=== PATIENT | male | born 1995 | race Two or more races ===

== ENCOUNTER 2018-02-26 02:35 | Observation (INO) | payer SELFPAY ==
[2018-02-26] MEDS ORDERED: NS 0.9% 1000 ML* 1,000 ML IV ONE (03:09)
[2018-02-26] MEDS ORDERED: Metoclopramide IV* 5 MG/ML 2 ML VIAL IV SLOW PU ONE (03:10)
[2018-02-26] MEDS ORDERED: Morphine INJ* 4 MG/ML 1 ML SYRINGE (NEW SYRINGE VERSION) IV ONE (03:10)
--- NOTE | 2018-02-26 03:14 | ED ---
Abdominal Pain/Male - HPI Summary HPI Summary: This patient is a 22 year old M presenting to [facility] with a chief complaint of mid abdominal pain since 21:00 on 02/25/18. The patient rates the pain 7/10 in severity. Patient reports vomiting 3 times, diarrhea, and nausea. Patient denies fever and sore throat. - History of Current Complaint Chief Complaint: EDAbdPain Stated Complaint: ABD PAIN/VOMITING Time Seen by Provider: 02/26/18 03:05 Hx Obtained From: Patient Onset/Duration: Sudden Onset, Lasting Hours - 21:00 on 02/25/18 Timing: Constant Severity Initially: Moderate Severity Currently: Moderate Pain Intensity: 7 Pain Scale Used: 0-10 Numeric Location: Diffuse - Mid-abdomen Associated Signs And Symptoms: Positive: Nausea, Vomiting - 3 times, Diarrhea. Negative: Fever, Other - Denies sore throat. - Allergies/Home Medications Allergies/Adverse Reactions: Allergies Allergy/AdvReac Type Severity Reaction Status Date / Time No Known Allergies Allergy Verified 02/26/18 02:40 PMH/Surg Hx/FS Hx/Imm Hx Endocrine/Hematology History: Denies: Hx Anticoagulant Therapy Cardiovascular History: Denies: Hx Hypertension Infectious Disease History: No Infectious Disease History: Denies: Traveled Outside the US in Last 30 Days - Family History Known Family History: Negative: Renal Disease - Social History Occupation: Student Lives: With Family Alcohol Use: None Substance Use Type: Reports: None Smoking Status (MU): Never Smoked Tobacco Review of Systems Negative: Fever Negative: Sore Throat Positive: Abdominal Pain - mid-abdominal pain, Vomiting - 3 times, Diarrhea, Nausea All Other Systems Reviewed And Are Negative: Yes Physical Exam - Summary Physical Exam Summary: VITAL SIGNS: Reviewed. GENERAL: Patient is a well-developed and nourished MALE who is lying comfortable in the stretcher. Patient is not in any acute respiratory distress. HEAD AND FACE: No signs of trauma. No ecchymosis, hematomas or skull depressions. No sinus tenderness. EYES: PERRLA, EOMI x 2, No injected conjunctiva, no nystagmus. EARS: Hearing grossly intact. Ear canals and tympanic membranes are within normal limits. MOUTH: Oropharynx within normal limits. NECK: Supple, trachea is midline, no adenopathy, no JVD, no carotid bruit, no c- spine tenderness, neck with full ROM. CHEST: Symmetric, no tenderness at palpation LUNGS: Clear to auscultation bilaterally. No wheezing or crackles. CVS: Regular rate and rhythm, S1 and S2 present, no murmurs or gallops appreciated. ABDOMEN: RLQ tenderness on deep palpation. No signs of distention. No rebound no guarding, and no masses palpated. Bowel sounds are normal. EXTREMITIES: FROM in all major joints, no edema, no cyanosis or clubbing. NEURO: Alert and oriented x 3. No acute neurological deficits. Speech is normal and follows commands. SKIN: Dry and warm Triage Information Reviewed: Yes Vital Signs On Initial Exam: Initial Vitals Temp Pulse Resp BP Pulse Ox 98.9 F 78 20 132/74 97 02/26/18 02:36 02/26/18 02:36 02/26/18 02:36 02/26/18 02:36 02/26/18 02:36 Vital Signs Reviewed: Yes Diagnostics - Vital Signs Vital Signs Temp Pulse Resp BP Pulse Ox 02/26/18 02:36 98.9 F 78 20 132/74 97 - Laboratory Result Diagrams: 02/26/18 03:20 02/26/18 03:20 Lab Statement: Any lab studies that have been ordered have been reviewed, and results considered in the medical decision making process. - CT Abdomen/Pelvis CT CT Interpretation Completed By: Radiologist - 05:26. The appendix is mildly enlarged measuring approximately 1 CM with surrounding inflammatory changes and wall thickening, findings are concerning for acute appendicitis. ED Physician has reviewed this imaging report. Abdominal Pain Fem Course/Dx - Course Course Of Treatment: This patient is a 22 year old M presenting to [facility] with a chief complaint of mid abdominal pain since 21:00 on 02/25/18. The patient rates the pain 7/10 in severity. Patient reports vomiting 3 times, diarrhea, and nausea. Patient denies fever and sore throat. Abdomen/Pelvis CT showed The appendix is mildly enlarged measuring approximately 1 CM with surrounding inflammatory changes and wall thickening, findings are concerning for acute appendicitis. Pt is dx with appendicitis. I spoke with Dr. Emerson, surgery, who will admit him. - Diagnoses Provider Diagnoses: Appendicitis - Provider Notifications Discussed Care Of Patient With: Christian Emerson - Surgery Time Discussed With Above Provider: 05:30 Instructed by Provider To: Admit As Inpatient Discharge - Sign-Out/Discharge Documenting (check all that apply): Patient Departure - Admit - Discharge Plan Condition: Stable Disposition: ADMITTED TO [facility] Referrals: No Primary Care Phys,NOPCP [Primary Care Provider] - - Attestation Statements Document Initiated by Scribe: Yes Documenting Scribe: Carlo Mai Provider For Whom Scribe is Documenting (Include Credential): Karla Ruiz MD Scribe Attestation: ICarlo, scribed for Karla Ruiz MD on 02/26/18 at 0539.
[2018-02-26 03:31] LABS: ABS Basophils 0.1 10^3/ul (0-0.2); ABS Eosinophils 0.1 10^3/ul (0-0.6); ABS Lymphocytes 1.5 10^3/ul (1.0-4.8); ABS Monocytes 0.7 10^3/ul (0-0.8); ABS Neutrophils 13.3 10^3/ul (1.5-7.7); ABS Nucleated RBC 0 10^3/ul; Eosinophil % 0.6 % (0-6); Hematocrit 46 % (42-52); Hemoglobin 15.8 g/dl (14.0-18.0); Lymphocyte % 9.6 % (25-47); Mean Corpuscular HGB Conc 34 g/dl (31-36); Mean Corpuscular Hemoglobin 31 pg (27-31); Mean Corpuscular Volume 90 fL (80-94); Mean Platelet Volume 8.6 um3 (7.4-10.4); Nucleated Red Blood Cells % 0; Platelet Count 188 10^3/ul (150-450); Red Blood Count 5.14 10^6/ul (4.00-5.40); Red Cell Distribution Width 13 % (10.5-15); White Blood Count 15.7 10^3/ul (3.5-10.8)
[2018-02-26 03:52] LABS: EGFR Non-African American 100.1 (>60)
[2018-02-26] MEDS ORDERED: Iohexol 300* (CONTRAST) 10 ML SDV IV ONE (04:29)
--- NOTE | 2018-02-26 05:26 | RAD ---
EXAM: CT Abdomen and Pelvis With Intravenous Contrast CLINICAL HISTORY: 22 years old, male; Pain; Abdominal pain; Epigastric; Additional info: Abd pain TECHNIQUE: Axial computed tomography images of the abdomen and pelvis with intravenous contrast. All CT scans at this facility use at least one of these dose optimization techniques: automated exposure control; mA and/or kV adjustment per patient size (includes targeted exams where dose is matched to clinical indication); or iterative reconstruction. Coronal and sagittal reformatted images were created and reviewed. CONTRAST: 100 mL of OMNIPAQUE 300 administered intravenously. COMPARISON: No relevant prior studies available. FINDINGS: Lung bases: Unremarkable. No mass. No consolidation. ABDOMEN: Liver: Unremarkable. No mass. Gallbladder and bile ducts: Unremarkable. No calcified stones. No ductal dilation. Pancreas: Unremarkable. No mass. No ductal dilation. Spleen: Unremarkable. No splenomegaly. Adrenals: Unremarkable. No mass. Kidneys and ureters: Unremarkable. No solid mass. No hydronephrosis. Stomach and bowel: Unremarkable. No obstruction. No mucosal thickening. PELVIS: Appendix: The appendix is mildly enlarged measuring approximately 1 CM with surrounding inflammatory changes and wall thickening, findings are concerning for acute appendicitis. Bladder: Unremarkable. No mass. Reproductive: Unremarkable as visualized. ABDOMEN and PELVIS: Intraperitoneal space: Unremarkable. No free air. No significant fluid collection. Bones/joints: No acute fracture. No dislocation. Soft tissues: Unremarkable. Vasculature: Unremarkable. No abdominal aortic aneurysm. Lymph nodes: Unremarkable. No enlarged lymph nodes. IMPRESSION: The appendix is mildly enlarged measuring approximately 1 CM with surrounding inflammatory changes and wall thickening, findings are concerning for acute appendicitis. To contact [facility] with a general question: [facility] - [phone] For direct physician to physician contact: Physician Hotline - [phone] [facility] ([facility] Facility ID #[id number])
[2018-02-26] MEDS ORDERED: Piperacillin/Tazobac ADVAN(*) 3.375 GM in NS 0.9% 100 ML* 100 ML IVPB ONE (05:28)
[2018-02-26] MEDS ORDERED: Morphine INJ* 4 MG/ML 1 ML SYRINGE (NEW SYRINGE VERSION) IV PRN (07:48)
[2018-02-26] MEDS ORDERED: Acetaminophen TAB* 325 MG PO PRN (07:48)
[2018-02-26] MEDS ORDERED: Ondansetron INJ* 2 MG/ML VIAL IV PRN (07:51)
[2018-02-26] MEDS ORDERED: NS 0.9% 1000 ML* 1,000 ML IV SCH (08:00)
[2018-02-26 08:09] LABS: Urine Appearance Clear; Urine Blood Negative (Negative); Urine Color Straw; Urine Ketones Negative (Negative); Urine Protein Negative (Negative); Urine Specific Gravity 1.046 (1.010-1.030); Urine Urobilinogen Negative (Negative)
[2018-02-26] MEDS ORDERED: Famotidine IV* 10 MG/ML 2 ML (20 mg) IV SLOW PU ONE (08:31)
--- NOTE | 2018-02-26 10:03 | HP ---
CC: Dr. Montenegro at [facility]; [facility] * PRIORITY PREOPERATIVE ADMISSION HISTORY AND PHYSICAL: DATE OF ADMISSION: 02/26/18 This patient was seen in the emergency department of [facility] on 02/26/18. ATTENDING SURGEON: Yon Montenegro MD * (dictated by Amelia Grant NP) CHIEF COMPLAINT: Abdominal pain. HISTORY OF PRESENT ILLNESS: The patient is a 22-year-old male who is a student at [employer]. He had the sudden onset of mid abdominal pain last evening around 10 p.m. and rated it at 9. He tried Tums and Pepto-Bismol without effect. He had 3 episodes of vomiting after the onset of the abdominal pain and 1 episode of loose stool. He did not eat any unusual foods and has had no sick contacts. He came to the emergency room with worsening abdominal pain. He denies any dysuria. He has had no previous abdominal surgeries and his last meal was at 8 p.m. last evening. White blood cell count on admission was elevated at 15.7 with a left shift. CAT scan of the abdomen and pelvis was concerning for acute appendicitis with a mildly enlarged appendix with surrounding inflammatory changes. PAST MEDICAL HISTORY: Generally healthy. No acute or chronic conditions. PAST SURGICAL HISTORY: [place] teeth extraction. MEDICATIONS: 1. Multivitamin. 2. Fish oil supplement daily. ALLERGIES: No known drug allergies. FAMILY HISTORY: No known gastrointestinal history. Parents and older sister are alive and well. 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 He is a nonsmoker. He denies the use of alcohol or other substances. REVIEW OF SYSTEMS: Constitutional: No fevers or chills, no excessive fatigue or weight loss. Respiratory: No dyspnea on exertion. Good exercise tolerance. No chronic cough. Cardiovascular: No chest pain or palpitations. Gastrointestinal: As described in history of present illness. Genitourinary: No dysuria. Musculoskeletal: No joint or back pain. Neurologic: No blurred vision. No headache. No numbness. General: No bleeding tendencies. No history of blood transfusions. PHYSICAL EXAMINATION GENERAL SURVEY: The patient is a 22-year-old male, well developed, well nourished, in no acute distress. VITAL SIGNS: Height 6 feet, weight 170 pounds, body mass index 23. Blood pressure 132/74, pulse 78 and regular, respiratory rate 20, temperature 98.9 tympanic, O2 saturation 97% on room air. HEENT: Benign. NECK: Supple. No cervical lymphadenopathy. LUNGS: Breath sounds bilaterally clear and equal. HEART: Regular rate and rhythm. No murmurs or rubs appreciated. ABDOMEN: Active bowel sounds. Flat, soft. No surgical scars. No obvious masses or organomegaly. No guarding. No rigidity. Negative to percussion. Mild right lower tenderness on deep palpation. MUSCULOSKELETAL: Full range of motion. GENITALIA AND RECTAL: Exams deferred. NEUROLOGIC: Alert and oriented x3. SKIN: Warm, dry, intact. IMPRESSION: Acute appendicitis. PLAN: Per Dr. Montenegro to the OR today for laparoscopic appendectomy. The risks and benefits and usual hospitalization and postoperative recovery were discussed with the patient. I also spoke with his parents by phone and they are on the way from [place]. Dr. Montenergo will obtain surgical consent. TIME SPENT: Sixty minutes with greater than 50% in [id number] history taking and coordination of care. IRMA GRANT NP [id number]/[facility] #: [id number] TIMO
[2018-02-26] MEDS ORDERED: Bupivacaine 0.25% EPI 200,000* 30 ML SDV ONE (13:14)
[2018-02-26] MEDS ORDERED: ZOSYN 3.375 GM x ONE DOSE over 30 miuntes IVPB ×2 (14:00)
[2018-02-26] MEDS ORDERED: fentaNYL* 50 MCG/ML 2 ML VIAL (100 MCG VIAL) ONE (14:24)
[2018-02-26] MEDS ORDERED: Midazolam* 1 MG/ML 2 ML VIAL (2 MG) ONE (14:24)
[2018-02-26] MEDS ORDERED: Propofol* 10 MG/ML 20 ML BTL IV PUSH ONE ×2 (14:26→14:35)
[2018-02-26] MEDS ORDERED: Rocuronium* 10 MG/ML VIAL ONE (14:28)
[2018-02-26] MEDS ORDERED: Ketorolac INJ* 30 MG/ML 1 ML VIAL ONE (15:05)
[2018-02-26] MEDS ORDERED: Neostigmine Methylsulfate* 1 MG/ML 10 ML VIAL (1 mg/ml) ONE (15:05)
[2018-02-26] MEDS ORDERED: Glycopyrrolate IV* 0.2 MG/ML 1 ML VIAL ONE (15:05)
[2018-02-26] MEDS ORDERED: Naloxone* 0.4 MG/ML 1 ML VIAL IV PRN (15:08)
[2018-02-26] MEDS ORDERED: fentaNYL* 50 MCG/ML 2 ML VIAL (100 MCG VIAL) IV PRN (15:08)
--- NOTE | 2018-02-26 16:03 | BRIEFOPN ---
Brief Operative Note - Surgery Procedures: OPERATIVE REPORT PRE-OP: Acute appendicitis POST-OP:Same PROCEDURE:Laparoscopic appendectomy SURGEON: MD Lan ANESTHESIA:Local with General, Dr. Chua ASST: none IVF:1 liter of crystalloid EBL:min SPECIMEN:appendix DRAIN: none WOUND CLASS:3 COMPLICATIONS: none TO PACU
[2018-02-26] MEDS ORDERED: oxyCODONE/Acetamin 5/325 MG* TAB PO PRN (16:10)
[2018-02-26 17:17] VITALS: BP 120/76
--- NOTE | 2018-02-27 02:20 | OP ---
DATE OF OPERATION: 02/26/18 - ROOM #334 DATE OF : [birth year] SURGEON: Yon Montenegro MD ANESTHESIOLOGIST: Dr. Hebert. ANESTHESIA: General with local. PRE-OP DIAGNOSIS: Acute appendicitis. POST-OP DIAGNOSIS: Acute appendicitis. OPERATIVE PROCEDURE: Laparoscopic appendectomy. ESTIMATED BLOOD LOSS: Minimal. IV FLUID: I L of crystalloid. SPECIMENS: Appendix. DRAINS: None. WOUND CLASSIFICATION: III. COMPLICATIONS: None. BRIEF HISTORY: Mr. 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 This persisted. He had some right lower quadrant pain. He presented to the emergency room. It was noted that a white blood count of 15,000. A CAT scan confirmed acute appendicitis. He was admitted to the surgical service, started on IV antibiotics. Recommendation now and plan is to proceed with a laparoscopic appendectomy. The procedure was discussed with the patient and his parents, and the risks of, but not limited to, bleeding, infection, abscess formation, injury to peritoneal and retroperitoneal structures, possibility of an open procedure, possibility of other indicated surgical procedures that may need to be performed were all explained. In addition, the risks of general anesthesia and deep vein thrombosis were all explained. DESCRIPTION OF PROCEDURE: Written informed consent was obtained, the patient received preoperative antibiotics, and the abdomen was marked with indelible ink. He was taken to the operating room and placed in the supine position. Sequential compression devices and warming blanket were applied. General anesthesia was administered. The abdomen was prepped and draped in the usual sterile fashion. Time-out verification was completed. A small transverse incision was made just above the umbilicus at the midline and the peritoneal cavity was entered under direct vision. A 12-mm port was then placed and the abdomen was insufflated to 15 mmHg. Under direct vision, a 5-mm port was placed in the left lower abdominal wall and a second 5-mm port was placed in the suprapubic position. There was no noted evidence of peritonitis or purulent fluid in any ports of the abdomen. The liver and gallbladder appeared to be normal. The terminal ileum was identified and this was unremarkable. The omentum was pulled up from the right lower quadrant to expose a normal- appearing cecum. At the base of the cecum however, there was a slightly inflamed appendix that was somewhat extraperitoneal extending laterally with the peritoneal attachments overlying it. This was somewhat firm and stiffened and somewhat edematous, all consistent with early acute appendicitis. There was evidence of gangrene or perforation. The appendix was mobilized from the tip to its base by freeing up the peritoneal attachments as well as divided the mesentery sequentially with the LigaSure device right down to the base. The base of the cecum was unremarkable. I appreciated no appendicolith on palpation. A hayes load of an Endo CECI 45-mm stapler was then used to divide the appendix at its base. The appendix was placed in an Endo Catch bag and removed from the umbilical incision. Staple line was intact. Hemostasis was assured. All ports were removed under direct vision of the camera. The umbilical fascia was closed with interrupted 0 Vicryl suture. The skin at all 3 incisions were approximated with subcuticular 4-0 Vicryl suture. Steri-Strips and sterile dressings were applied. The patient tolerated the procedure well and was taken to the recovery room in stable condition. [id number]/[facility] #: [id number] TIMO
--- NOTE | 2018-03-03 05:55 | DS ---
DISCHARGE SUMMARY: DATE OF ADMISSION: 02/26/18 DATE OF DISCHARGE: 02/26/18 PRINCIPAL DIAGNOSIS: Acute appendicitis. PROCEDURE PERFORMED: Laparoscopic appendectomy. CONDITION ON DISCHARGE: Good. DISPOSITION: To home. INSTRUCTIONS ON FOLLOWUP: The patient was going to be going to his home in [place] [facility]. They were instructed to call and make an appointment on his return to the [facility] for a postoperative check. He required no further antibiotics and a narcotic prescription was giv en, however. BRIEF HISTORY: Mr. 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 He was noted to have an elevated white bloo d cell count with the CT scan showing acute appendicitis. HOSPITAL COURSE: The patient was seen in surgical consultation, was taken to the operating room on t day of presentation, where he underwent a laparoscopic appendectomy for acute appendicitis. He di d well and was discharged home later from the recovery room on the day of surgery with the above inst ructions. [id number]/[facility] #: [id number]
== END 2018-02-26 18:30 | disposition home or self-care (01) ==
LOC: ED 02:35 → SSU 07:58
PROVIDERS: ADMIT Surgery; ATTEND Surgery
DX: K35.80 Unspecified acute appendicitis (principal)
CPT/HCPCS: 36415; 74177; 80053; 81003; 83605; 83690; 83735; 85025; 86140; 88304; 96361; 96374; 96375; 96376; 99284; C1776; G0378; J1885; J2250; J2270; J2543; J2704; J2710; J2765; J3010; Q9967

== ENCOUNTER 2018-08-07 12:30 | Observation (INO) | payer BC, OTHER ==
[2018-08-07 13:55] LABS: Hematocrit 43 % (36-46); Hemoglobin 14.8 g/dL (14.0-18.0); Mean Corpuscular HGB Conc 35 g/dL (31-36); Mean Corpuscular Hemoglobin 31 pg (27-31); Mean Corpuscular Volume 88 fL (80-94); Mean Platelet Volume 7.7 fL (7.4-10.4); Platelet Count 150 10^3/uL (150-450); Red Blood Count 4.81 10^6 /uL (4.18-5.48); Red Cell Distribution Width 13 % (10.5-15); White Blood Count 7.2 10^3/uL (3.5-10.8)
[2018-08-07 14:31] LABS: Troponin I 4.97 ng/mL (<0.04)
[2018-08-07 14:33] LABS: ALT 29 U/L (7-52); AST 52 U/L (13-39); Albumin 4.6 g/dL (3.2-5.2); Albumin/Globulin Ratio 1.7 (1-3); Alkaline Phosphatase 58 U/L (34-104); Anion Gap 5 mmol/L (2-11); BUN/Creatinine Ratio 12.5 (8-20); Blood Urea Nitrogen 11 mg/dL (6-24); CO2 Carbon Dioxide 30 mmol/L (22-32); Calcium 9.3 mg/dL (8.6-10.3); Chloride 102 mmol/L (101-111); EGFR Non-African American 108.3 (>60); Globulin 2.7 g/dL (2-4); Glucose 98 mg/dL (70-100); Potassium 4.2 mmol/L (3.5-5.0); Sodium 137 mmol/L (135-145); Total Protein 7.3 g/dL (6.4-8.9)
[2018-08-07 14:34] LABS: Immature Granulocytes 1 % (0-9); Lymphocytes % 17 %; Monocytes % 3 %; Neutrophil % 46 %; Variant Lymph % 30 % (0-6)
--- NOTE | 2018-08-07 14:42 | ED ---
HPI Chest Pain - HPI Summary HPI Summary: A 23 y/o M presents to ED with intermittent CP upon waking for the past three days. Pt says the CP lasted for about an hour, occurred only in the AM, and then resolved. He describes it as a tightness. He has no CP at bedside. He's been sick for approx one week. Associated sx: cough, KUMAR, chills, eye soreness, lethargic, mild nausea. Sx have resolved except for cough. Denies fever, sore throat, SOB, pedal edema. He denies aggravating factors. He started Cephalexin 2 days ago for a pilonidal cyst. - History of Current Complaint Chief Complaint: EDChestPainROMI Time Seen by Provider: 08/07/18 14:41 Hx Obtained From: Patient Onset/Duration: Started Days Ago, Resolved Timing: Intermittent, Lasting Hours Current Severity: None Pain Intensity: 0 Pain Scale Used: 0-10 Numeric Character: Tightness Aggravating Factor(s): Nothing Alleviating Factor(s): Spontaneous Resolution Associated Signs and Symptoms: Positive: Headaches, Chills, Nausea, Cough, Other : - pos: eye soreness, lethargy. neg: sore throat. Negative: Shortness of Breath, Fever, Calf Pain/Swelling - Allergy/Home Medications Allergies/Adverse Reactions: Allergies Allergy/AdvReac Type Severity Reaction Status Date / Time No Known Allergies Allergy Verified 02/26/18 02:40 Home Medications: Home Medications Cephalexin CAP* [Keflex 500 CAP*] 1 cap PO TID 08/07/18 [History Confirmed 08/07] PMH/Surg Hx/FS Hx/Imm Hx Previously Healthy: Yes Endocrine/Hematology History: Denies: Hx Anticoagulant Therapy, Hx Diabetes Cardiovascular History: Denies: Hx Hypertension Respiratory History: Comment Only: Other Respiratory Problems/Disorders - notice wheezing once years ago after activity, tx w nebulizer GI History: Reports: Other GI Disorders - acute appendicitis History: Denies: Hx Renal Disease Sensory History: Denies: Hx Contacts or Glasses, Hx Hearing Aid Opthamlomology History: Denies: Hx Contacts or Glasses - Surgical History Surgery Procedure, Year, and Place: wisdom teeth extraction "years ago" Hx Anesthesia Reactions: No Infectious Disease History: No Infectious Disease History: Denies: Traveled Outside the US in Last 30 Days - Family History Known Family History: Negative: Renal Disease - Social History Occupation: Student Lives: With Family Alcohol Use: Weekly Alcohol Amount: 6+ drinks on the weekends Hx Substance Use: No Substance Use Type: Reports: None Hx Tobacco Use: No Smoking Status (MU): Never Smoked Tobacco Review of Systems Positive: Chills, Fatigue - lethargic. Negative: Fever Eyes: Other - pos: eye soreness Negative: Sore Throat Positive: Chest Pain Positive: Cough. Negative: Shortness Of Breath Positive: Nausea Negative: Edema Positive: Headache All Other Systems Reviewed And Are Negative: Yes Physical Exam - Summary Physical Exam Summary: Constitutional: Well-developed, Well-nourished, Alert. (-) Distressed Skin: Warm, Dry HENT: Normocephalic; Atraumatic Eyes: Conjunctiva normal Neck: Musculoskeletal ROM normal neck. (-) JVD, (-) Stridor, (-) Tracheal deviation Cardio: Rhythm regular, rate normal, Heart sounds normal; Intact distal pulses; The pedal pulses are 2+ and symmetric. Radial pulses are 2+ and symmetric. (-) Murmur Pulmonary/Chest wall: Effort normal. (-) Respiratory distress, (-) Wheezes, (-) Rales Abd: Soft, (-) tenderness, (-) Distension, (-) Guarding, (-) Rebound Musculoskeletal: (-) Edema Lymph: (-) Cervical adenopathy Neuro: Alert, Oriented x3 Psych: Mood and affect Normal Triage Information Reviewed: Yes Vital Signs On Initial Exam: Initial Vitals Temp Pulse Resp BP Pulse Ox 98.3 F 86 18 115/69 99 08/07/18 12:34 08/07/18 12:34 08/07/18 12:34 08/07/18 12:34 08/07/18 12:34 Vital Signs Reviewed: Yes Diagnostics - Vital Signs Vital Signs Temp Pulse Resp BP Pulse Ox 08/07/18 12:34 98.3 F 86 18 115/69 99 - Laboratory Lab Results: Lab Results 08/07/18 08/07/18 08/07/18 Range/Units 13:48 13:48 13:48 WBC 7.2 (3.5-10.8) 10^3/uL RBC 4.81 (4.18-5.48) 10^6 /uL Hgb 14.8 (14.0-18.0) g/dL Hct 43 (36-46) % MCV 88 (80-94) fL MCH 31 (27-31) pg MCHC 35 (31-36) g/dL RDW 13 (10.5-15) % Plt Count 150 (150-450) 10^3/uL MPV 7.7 (7.4-10.4) fL Neut % (Auto) Not Reportable Lymph % (Auto) Not Reportable Eaton % (Auto) Not Reportable Eos % (Auto) Not Reportable Baso % (Auto) Not Reportable Absolute Neuts (auto) Not Reportable Absolute Lymphs (auto) Not Reportable Absolute Monos (auto) Not Reportable Absolute Eos (auto) Not Reportable Absolute Basos (auto) Not Reportable Absolute Nucleated RBC Not Reportable Immature Gran % 1 (0-9) % Neutrophils % 46 % Band Neutrophils % 1 (0-8) % Lymphocytes % 17 % Reactive Lymphs % 30 H (0-6) % Monocytes % 3 % Eosinophils % 1 % Basophils % 2 % Nucleated RBC % Not Reportable Normal RBC Morphology Normal (Normal) Hem Pathologist Commnt Pending Sodium 137 (135-145) mmol/L Potassium 4.2 (3.5-5.0) mmol/L Chloride 102 (101-111) mmol/L Carbon Dioxide 30 (22-32) mmol/L Anion Gap 5 (2-11) mmol/L BUN 11 (6-24) mg/dL Creatinine 0.88 (0.67-1.17) mg/dL Est GFR ( Amer) 131.0 (>60) Est GFR (Non-Af Amer) 108.3 (>60) BUN/Creatinine Ratio 12.5 (8-20) Glucose 98 (70-100) mg/dL Lactic Acid 0.8 (0.5-2.0) mmol/L Calcium 9.3 (8.6-10.3) mg/dL Total Bilirubin 0.80 (0.2-1.0) mg/dL AST 52 H (13-39) U/L ALT 29 (7-52) U/L Alkaline Phosphatase 58 (34-104) U/L Troponin I 4.97 H* (<0.04) ng/mL Total Protein 7.3 (6.4-8.9) g/dL Albumin 4.6 (3.2-5.2) g/dL Globulin 2.7 (2-4) g/dL Albumin/Globulin Ratio 1.7 (1-3) Monoscreen Pending Result Diagrams: 08/07/18 13:48 08/07/18 13:48 Lab Statement: Any lab studies that have been ordered have been reviewed, and results considered in the medical decision making process. - EKG 1245 Cardiac Rate: NL - 85 bpm EKG Rhythm: Sinus Rhythm Summary of EKG Findings: Normal sinus rhythm at 85 bpm, normal MN, normal QRS, normal QTc, normal axis, elevated ST in V2 - V6, II, III and aVL, normal T-waves , P waves depressed in II, avF, V2 - V4. Overall possible acute pericarditis. Re-Evaluation - Re-Evaluation 1 Re-Evaluation Time: 16:07 Change: Improved Comment: Discussing results with pt and plans to admit. He is agreeable to this. Pt feeling mildly improved. Chest Pain Course/Dx - Course Course Of Treatment: Pt is a 23 y/o M presenting with intermittent CP upon waking, lasting about one hour, for the past three days. He has no CP at bedside. He's been sick for approx one week with cough, KUMAR, chills, eye soreness , lethargy, mild nausea. He started ABX 2 days ago for a pilonidal cyst. PE is unremarkable. EKG shows NSR at 85 bpm, normal MN, normal QRS, normal QTc, normal axis, elevated ST in V2 - V6, II, III and aVL, normal T-waves, P waves depressed in II, avF, V2 - V4. Overall possible acute pericarditis vs. early repol. Consulted with Dr. Gallegos, cardiology, who recommend NSAIDS, colchicine. Pt given Motrin, Colchicine in ED. Consulted with Dr. Yoon, hospitalist, who will admit patient. - Diagnoses Provider Diagnoses: Pericarditis - Provider Notifications Discussed Care Of Patient With: Justin Gallegos - cardio Time Discussed With Above Provider: 15:51 Instructed by Provider To: Other - Recommends NSAIDS, colchicine. - Critical Care Time Critical Care Time: 30-74 min - 35 mins CCT Discharge - Sign-Out/Discharge Documenting (check all that apply): Patient Departure - ADMIT Patient Received Moderate/Deep Sedation with Procedure: No - Discharge Plan Disposition: ADMITTED TO [facility] - Attestation Statements Document Initiated by Scribe: Yes Documenting Scribe: Danna Armenta Provider For Whom Scribe is Documenting (Include Credential): Dr. Johanny Farias MD Scribe Attestation: I, Danna Armenta, scribed for Dr. Johanny Farias MD on at 2134. Status of Scribe Document: Ready Consult Consult: 1600: Consult with Dr. Yoon, hospitalist Will accept pt for admission.
[2018-08-07 14:43] LABS: ABS Neutrophils 3.4 10^3/ul (1.5-7.7)
[2018-08-07 14:44] LABS: ABS Basophils 0.1 10^3/ul (0-0.2); ABS Eosinophils 0.1 10^3/ul (0-0.6)
[2018-08-07] MEDS ORDERED: Ibuprofen TAB* 600 MG PO ONE (15:54)
[2018-08-07 15:56] LABS: Barbiturates Urine Screen None Detected (None Detect); Benzodiazepine Urine Screen None Detected (None Detect); Urine Cannabinoids Screen None Detected (None Detect)
[2018-08-07] MEDS ORDERED: Colchicine* 0.6 MG TAB PO ONE ×2 (15:57→17:14)
[2018-08-07] MEDS ORDERED: Colchicine* 0.6 MG TAB PO SCH (16:00)
[2018-08-07 16:10] LABS: Troponin I 3.93 ng/mL (<0.04)
[2018-08-07 16:52] LABS: ABS Basophils 0.1 10^3/ul (0-0.2); ABS Eosinophils 0.1 10^3/ul (0-0.6); ABS Lymphocytes 3.1 10^3/ul (1.0-4.8); ABS Monocytes 0.7 10^3/ul (0-0.8); ABS Neutrophils 3.2 10^3/ul (1.5-7.7); ABS Nucleated RBC 0 10^3/ul; Lymphocyte % 42.7 %; Nucleated Red Blood Cells % 0.3
[2018-08-07] MEDS ORDERED: Acetaminophen TAB* 325 MG PO PRN (17:42)
[2018-08-07] MEDS ORDERED: Al Hydrox/Mg Hydrox/Simet LIQ* 30 ML UDC PO PRN (17:42)
--- NOTE | 2018-08-07 19:34 | HP ---
HISTORY AND PHYSICAL: DATE OF ADMISSION: 08/07/18 PRIMARY CARE PROVIDER: None locally. ATTENDING PHYSICIAN: Dr. Nancy Yoon * (dictated by Rut Easley, SOLITARIO). CHIEF COMPLAINT: Chest pain. HISTORY OF PRESENT ILLNESS: Mr. Nava is a 23-year-old male with a past medical history significant for pilonidal cyst x2, acute appy; who presented to the emergency room today with complaints of chest pain x3 days upon waking. The patient reports that about 08/01/18, he started to have a cough, headache, chills, eye soreness, lethargy, and mild nausea. He reports he never had a sore throat. These symptoms lasted until approximately 08/03/18. All these symptoms resolved except for the dry cough. Starting on Monday morning, the patient started to have chest pain upon waking that would last approximately 1 hour in the morning. The patient denies any associated symptoms including shortness of breath, exertional chest pain, nausea, vomiting, diaphoresis, diarrhea, abdominal pain. The patient reports alleviating factors include Advil or sitting up. The patient reports aggravating factors include lying back down , which made the pain come back. The patient reports the pain would last about an hour and resolve on its own. This happened for the past 3 days. It did not change or worsen, but the patient became concerned due to recurrence of this pain. Therefore, he presented to the emergency department today. While in the emergency department today, he was noted to have an elevated trop of 4.97. His EKG revealed sinus rhythm with some ST elevation suggestive of acute pericarditis. Therefore, the hospitalists were asked to evaluate for admission. It should also be noted that about 2 days ago, the patient was seen by his primary care provider at home in [place] due to recurrence of his pilonidal cyst on his buttocks. He has been on Keflex 500 mg t.i.d. for about 2 days. He denies any fevers, drainage, night sweats, chills. PAST MEDICAL HISTORY: 1. Sporadic wheeze. 2. Acute appendicitis, status post appendectomy. 3. Pilonidal cyst recurrent x2 in the past 4 years. PAST SURGICAL HISTORY: 1. Taft teeth. 2. Appendectomy. HOME MEDICATIONS: 1. Keflex 500 mg t.i.d. x2 days so far. 2. Advil 400 mg daily p.r.n. ALLERGIES: No known drug allergies. FAMILY HISTORY: Mom and dad are both alive and healthy. Sister is alive and healthy. Maternal grandmother had breast cancer. SOCIAL HISTORY: The patient denies smoking. The patient reports social drinking on the weekends, approximately 6 beers a weekend. The patient denies drug use. The patient is a student. The patient lives in a house with roommates. The patient is unmarried. The patient has no kids. The patient's surrogate decision maker will be his father, Yariel Nava, . REVIEW OF SYSTEMS: A 14-point review of systems was performed and all pertinent positive and negative findings are in the HPI. All other systems are negative. PHYSICAL EXAMINATION GENERAL: Mr. Nava is a 23-year-old male. He is well developed, well nourished, sitting in bed, no acute distress. Appears stated age. VITAL SIGNS: 98.3, HR 86, RR 18, O2 saturation 98% on room air, BP 115/69. HEENT: EOMs intact. PERRLA. Oral mucosa is moist without lesion. Posterior pharynx is clear. Posterior pharynx is also free from redness, exudate, lesions. NECK: Full range of motion. No lymphadenopathy. Supple. RESPIRATORY: Symmetrical chest expansion. No accessory muscle use. LUNGS: Clear to auscultation and percussion. No rhonchi, wheezes, or rubs. CARDIAC: S1, S2 present. Regular rate and rhythm. No murmurs, rubs, or gallops. No JVD. ABDOMEN: Soft, nontender. Bowel sounds x4. EXTREMITIES: Skin is warm and smooth bilaterally. No edema. No clubbing or cyanosis. Pedal pulses 2+ bilaterally. MUSCULOSKELETAL: Full range of motion. No pain or deformities. NEURO: The patient is awake, alert, and oriented x4. Motor strength is 5/5 throughout. Steady gait. No impairment. SKIN: The patient has a very small opening to the top of his gunner cleft that he has covered with gauze and tape. There is no redness. There is no drainage. Remainder of the skin is grossly intact without lesion. DIAGNOSTIC STUDIES/LABORATORY DATA: WBC 7.2, hemoglobin 14.8, hematocrit is 43 , platelet is 150. Sodium is 137, potassium is 4.2, chloride is 102, carbon dioxide is 30, BUN is 11, creatinine is 0.33, glucose 98. Lactic acid 0.8. Troponin 4.97. Repeat troponin 3.93. ASSESSMENT AND PLAN: Mr. Nava is a 23-year-old male with no significant past medical history, who presented to the emergency department today with chest pain and was found to possibly have pericarditis. He will be admitted OBV. 1. Chest pain: We suspect the patient's chest pain is secondary to pericarditis. [facility] We will trend his troponins. I have ordered an echocardiogram. He will be treated with colchicine. He will also be treated with ibuprofen. He will be treated with Protonix prophylactically. Dr. Gallegos has been contacted by my attending, Dr. Yoon, who is aware of the patient. 2. Pilonidal cyst: The area is free from signs and symptoms of infection. The patient can continue dressing independently as he has at home. I will continue the patient's Keflex. 3. FEN: The patient will be given a regular diet. The patient will be given p.o. fluids. Therefore, no IV fluids were started at this time. 4. Code status: The patient is a full code. 5. DVT prophylaxis: Based on DVT risk assessment, the patient is low risk. Therefore, order ambulation. TIME SPENT: Approximately 60 minutes were spent on this admission; greater than half time was spent [id number] with the patient obtaining my history, performing my physical exam, reviewing my plan of care. This case has been reviewed by my attending, Dr. Yoon, who agrees with my plan. RUT EASLEY, SOLITARIO [id number]/[facility] #: [id number] TIMO
[2018-08-07 19:35] LABS: Troponin I 3.01 ng/mL (<0.04)
[2018-08-07] MEDS: Cephalexin CAP* 500 MG PO SCH (19:36)
[2018-08-07] MEDS: Pantoprazole TAB * 40 MG TAB PO SCH (19:36)
[2018-08-07] MEDS: Ibuprofen TAB* 600 MG PO SCH (21:30)
[2018-08-08 00:44] LABS: Troponin I 2.18 ng/mL (<0.04)
[2018-08-08 04:10] LABS: Troponin I 2.09 ng/mL (<0.04)
[2018-08-08] MEDS: Ibuprofen TAB* 600 MG PO SCH ×2 (05:10→13:54)
[2018-08-08 06:16] LABS: ABS Basophils 0.1 10^3/ul (0-0.2); ABS Eosinophils 0 10^3/ul (0-0.6); ABS Lymphocytes 3.3 10^3/ul (1.0-4.8); ABS Monocytes 0.7 10^3/ul (0-0.8); ABS Neutrophils 2.3 10^3/ul (1.5-7.7); ABS Nucleated RBC 0 10^3/ul; Eosinophil % 0.2 %; Hematocrit 45 % (36-46); Hemoglobin 15.5 g/dL (14.0-18.0); Lymphocyte % 51.4 %; Mean Corpuscular HGB Conc 35 g/dL (31-36); Mean Corpuscular Hemoglobin 31 pg (27-31); Mean Corpuscular Volume 89 fL (80-94); Mean Platelet Volume 8.4 fL (7.4-10.4); Nucleated Red Blood Cells % 0.5; Platelet Count 140 10^3/uL (150-450); Red Cell Distribution Width 13 % (10.5-15); White Blood Count 6.4 10^3/uL (3.5-10.8)
[2018-08-08 06:27] LABS: Anion Gap 8 mmol/L (2-11); Blood Urea Nitrogen 12 mg/dL (6-24); CO2 Carbon Dioxide 25 mmol/L (22-32); Calcium 9.3 mg/dL (8.6-10.3); Chloride 104 mmol/L (101-111); EGFR African American 146.3 (>60); EGFR Non-African American 120.9 (>60); Glucose 90 mg/dL (70-100); Sodium 137 mmol/L (135-145)
[2018-08-08 06:49] LABS: Troponin I 1.61 ng/mL (<0.04)
[2018-08-08] MEDS: Pantoprazole TAB * 40 MG TAB PO SCH (08:37)
[2018-08-08] MEDS: Cephalexin CAP* 500 MG PO SCH ×2 (08:37→13:53)
[2018-08-08] MEDS ORDERED: Colchicine* 0.6 MG TAB PO SCH (09:00)
--- NOTE | 2018-08-08 10:59 | ECHO ---
Patient: SAVANAH KRAFT [facility] Rec#: [id number] : 1995 Date: 08/08/2018 Age: 23y Height: 182.88 cm / 72.0 in Weight: 77.11 kg / 170.0 lbs Sex: M BSA: 1.99 Room#: 431 Admit Date#: 08/07/2018 Type: Inpatient Referring: Pamela Last Reading: Zain Oseguera MD [employer] Specialist: Jose[facility] Transthoracic Echocardiogram Indication: Abnormal EKG BP: 104/58 HR: 69 Rhythm: NSR Findings History: Recent dry cough, no known cardiac history. Technical Comments: The study quality is good. Completed at 1045. Left Ventricle: The left ventricular chamber size is normal.False tendon present. There is no left ventricular hypertrophy. Global left ventricular wall motion and contractility are within normal limits. Left ventricular systolic function is at the lower limits of normal. The estimated ejection fraction is 50-55%. Normal left ventricular diastolic filling is observed. Left Atrium: The left atrial chamber size is normal. Right Ventricle: Moderator Band present. The right ventricular cavity size is normal. The right ventricular global systolic function is low normal. Right Atrium: The right atrial cavity size is normal. Aortic Valve: The aortic valve is trileaflet. There is no evidence of aortic valve thickening. There is a trace of aortic regurgitation. There is no evidence of aortic stenosis. Mitral Valve: The mitral valve leaflets do not appear thickened. There is a trace of mitral regurgitation. There is no evidence of mitral stenosis. Tricuspid Valve: The tricuspid valve leaflets are normal. There is trace to mild tricuspid regurgitation. The right ventricular systolic pressure is estimated at 26 mmHg. No pulmonary hypertension is noted. There is no tricuspid stenosis. Pulmonic Valve: The pulmonic valve appears normal. There is a trace pulmonic regurgitation. There is no pulmonic stenosis. Pericardium: There is no significant pericardial effusion. Aorta: There is no dilatation of the ascending aorta. There is no dilatation of the aortic arch. The aortic root is normal in size. Pulmonary Artery: The main pulmonary artery appears normal. Venous: The inferior vena cava appears normal in size. There is a greater than 50% respiratory change in the inferior vena cava dimension. Summary: There was not any prior study for comparison. Conclusions Left ventricular systolic function is at the lower limits of normal. The estimated ejection fraction is 50-55%. The right ventricular global systolic function is low normal. There is a trace of aortic regurgitation. There is a trace of mitral regurgitation. There is trace to mild tricuspid regurgitation. There is no significant pericardial effusion. Measurements Name Value Normal Range RVIDd (AP) 2D 2.6 cm (0.9 - 2.6) RVDdMajor (2D) 3.9 cm (2.2 - 4.4) RAd ISD 4CH 4.7 cm (3.4 - 4.9) RA (A4C)W 4.5 cm (2.9 - 4.6) IVSd (2D) 0.8 cm (0.6 - 1) LVPWd (2D) 1 cm (0.6 - 1) LVIDd (2D) 5.35 cm (3.6 - 5.4) LVIDs (2D) 3.8 cm - LV FS (2D) 29 % (25 - 45) Aortic Annulus 2.5 cm (1.4 - 2.6) Ao root diameter (2D) 3 cm (2.1 - 3.5) Ascending Ao 2.8 cm (2.1 - 3.4) Aortic arch 2 cm (1.8 - 3.4) LA dimension (AP) 2D 3.5 cm (2.3 - 3.8) LAd ISD 4CH 4.7 cm (2.9 - 5.3) LA ISD 4CH W 4.4 cm (2.5 - 4.5) Name Value Normal Range LA ESV SP 4CH (A/L) 57 ml - LA ESV SP 2CH (A/L) 52 ml - LA ESV BP (A/L) 55 ml - LA ESV BP (A/L) index 28 ml/m2 - LA ESV SP 4CH (MOD) 54 ml - LA ESV SP 2CH (MOD) 45 ml - Name Value Normal Range MV E-wave Vmax 0.91 m/sec - MV deceleration time 212 msec - MV A-wave Vmax 0.59 m/sec - MV E:A ratio 1.5 ratio - LV septal e' Vmax 0.15 m/sec - LV lateral e' Vmax 0.17 m/sec - LV E:e' septal ratio 6.1 ratio - LV E:e' lateral ratio 5.4 ratio - Name Value Normal Range AV Vmax 1.1 m/sec - AV VTI 22 cm - AV peak gradient 4 mmHg - AV mean gradient 2 mmHg - LVOT Vmax 0.8 m/sec - LVOT VTI 17 cm - LVOT peak gradient 3 mmHg - LVOT mean gradient 1.5 mmHg - JENNIFER Vmax 1.3 m/sec - Name Value Normal Range TR Vmax 2.4 m/sec - TR peak gradient 23 mmHg - RAP 3 mmHg - RVSP 26 mmHg - IVC diameter 1.8 cm - Name Value Normal Range PV Vmax 0.97 m/sec - PV peak gradient 3.82 mmHg -
[2018-08-08 12:33] VITALS: BP 102/50
--- NOTE | 2018-08-08 13:57 | PN ---
Subjective Date of Service: 08/08/18 Interval History: Mr. Nava is feeling better today. He reports that his CP has resolved completely. He offers no complaints. No SOB, N/V. Has been up ambulating in the room. Does not want to be woken up overnight for vitals. No concerns or complaints from nursing. Family History: Unchanged from Admission Social History: Unchanged from Admission Past Medical History: Unchanged from Admission Objective Active Medications: Acetaminophen (Tylenol Tab*) 650 mg PO Q4H PRN FEVER/PAIN Al Hydrox/Mg Hydrox/Simethicone (Maalox Plus*) 30 ml PO Q6H PRN INDIGESTION Cephalexin HCl (Keflex Cap*) 500 mg PO TID ANGELITA Colchicine (Colcrys*) 0.6 mg PO BID ANGELITA Ibuprofen (Motrin Tab*) 600 mg PO Q8HR ANGELITA Pantoprazole Sodium (Protonix Tab*) 40 mg PO DAILY ANGELITA Vital Signs - 8 hr 08/08/18 08/08/18 08/08/18 07:17 08:00 11:39 Temperature 97.5 F 97.4 F Pulse Rate 71 71 Respiratory 16 16 16 Rate Blood Pressure 94/55 102/50 (mmHg) O2 Sat by Pulse 98 99 Oximetry Oxygen Devices in Use Now: None Appearance: Young adult male sitting in bed in NAD Eyes: No Scleral Icterus Ears/Nose/Mouth/Throat: Mucous Membranes Moist Neck: NL Appearance and Movements; NL JVP, Trachea Midline Respiratory: Symmetrical Chest Expansion and Respiratory Effort, Clear to Auscultation Cardiovascular: NL Sounds; No Murmurs; No JVD, RRR Abdominal: NL Sounds; No Tenderness; No Distention Extremities: No Edema Skin: No Rash or Ulcers Neurological: Alert and Oriented x 3 Lines/Tubes/Other Access: Clean, Dry and Intact Peripheral IV Nutrition: Taking PO's Result Diagrams: 08/08/18 03:32 08/08/18 03:32 Assess/Plan/Problems-Billing Assessment: Mr. Nava is a 23 yo M with PMH of Pilonidal cyst, on antibiotics; who presented to the ED with c/o intermittent CP and was found to have pericarditis. - Patient Problems (1) Pericarditis Code(s): I31.9 - DISEASE OF PERICARDIUM, UNSPECIFIED Comment: - Suspect precipitated by URI last week - Pain now resolved - Trops peaked on arrival at 4.97, now down to 1.61 - Echo shows EF 50-55%, no pericardial effusions - Appreciate Cardiology consult; will see later today, but recommends monitoring again overnight - Recheck trop now and again in the AM to confirm it is still trending down - Continue colchicine, ibuprofen, pantoprazole (2) Pilonidal cyst Code(s): L05.91 - PILONIDAL CYST WITHOUT ABSCESS Comment: - Not currently infected - Continue cephalexin (3) DVT prophylaxis Comment: - Ambulation (4) Full code status Code(s): Z78.9 - OTHER SPECIFIED HEALTH STATUS Comment: Status and Disposition: Observation. Anticipate d/c home tomorrow morning. Attending: Nancy Yoon
[2018-08-08 15:36] LABS: C Reactive Protein 12.25 mg/L (<8.01)
[2018-08-08 15:37] LABS: C Reactive Protein 11.49 mg/L (<8.01)
--- NOTE | 2018-08-08 16:59 | CONS ---
CC: Zain Oseguera MD; [facility] * CARDIOLOGY CONSULTATION: DATE OF CONSULT: 08/08/18 REASON FOR EVALUATION: Myopericarditis. CONSULTING PHYSICIAN: Tamika Martinez NP HISTORY OF PRESENT ILLNESS: This is a very pleasant 23-year-old gentleman who had a viral illness approximately 10 days ago. He said he developed a cough, headache, eye discomfort and chills, nausea and nonproductive cough on 07/31/18 through 08/03/18. He said on Monday, Monday, and Monday, 08/04/18, 08/05/18, 08/06/18, he noticed he had some tightness in his chest that was most noticeable in the morning when he first woke up after getting up and moving around and eating. He said it would improve after an hour. It seems it was somewhat worse with inspiration and lying down. He had a mild headache. Because of those symptoms, he came to the ER yesterday afternoon. His EKG was suggestive of pericarditis and his troponins were elevated and he was admitted for further observation. He was treated with colchicine and nonsteroidal anti- inflammatories and he said he has had no further chest discomfort since yesterday morning. He denies any syncope, near syncope, palpitations, orthopnea , or PND. He said he thinks he had a low-grade fever last week, but his peak temperature was 98 when he checked it. He has been afebrile here on the cevallos. His temperature was 98.3. He denies any previous heart problems, murmurs, gallops, or rubs. No exercise limitation. He used to play soccer in high school and years past. He does some weightlifting and runs mile on occasion, last did that 2 weeks ago. He denies recreational drug use. He does drink alcohol on occasion. PAST MEDICAL HISTORY: Includes sporadic wheezing; acute appendicitis status post appendectomy in February 2018 pilonidal cyst recurrent x2 in the past 4 years, he recently saw his doctor back home, was started on Keflex. PAST SURGICAL HISTORY: Includes wisdom teeth, appendectomy. MEDICATIONS: His medications at home include: 1. Keflex 500 mg t.i.d. x3 days. 2. Advil 400 mg daily p.r.n. As an inpatient, his medications include: 1. Acetaminophen. 2. Maalox Plus p.r.n. 3. Keflex 500 mg t.i.d. 4. Colchicine 0.4 mg b.i.d. 5. Ibuprofen 600 mg q.8. 6. Protonix 40 mg a day. ALLERGIES: He denies any allergies. FAMILY HISTORY: He said that his mother is 53 and alive and well. His father is 59, alive and well. He has a sister who is alive and well. He is a senior at [employer], doing radio and television studies. He is single. His normal [facility] is [facility]. SOCIAL HISTORY: He denies tobacco use or caffeine use. He does have approximately 6 beers at one time once a weekend. REVIEW OF SYSTEMS: His review of systems x10 was negative except as above. PHYSICAL EXAMINATION: He is a well-developed, well-nourished thin gentleman, in no apparent distress. Blood pressure 102/50, pulse is 71, O2 sats 99% on room air, temperature 97.4. Atraumatic, normocephalic. Extraocular muscles are intact. Sclerae anicteric. No significant JVD. Carotids 2+, without bruits. No cervical adenopathy or thyromegaly. Cardiac Exam: S1 and S2 with a 1/6 holosystolic murmur at the left lower sternal border which increased with inspiration, pretty much vanishes with expiration. Chest was clear. No CVAT. Abdomen: Bowel sounds present, nontender. Femoral pulses intact without bruits. Distal pulses intact. Negative Homans' sign. Motor strength 5/5 bilaterally. Deep tendon reflexes 2/4. Alert and oriented x3. No rashes. DIAGNOSTIC STUDIES/LAB DATA: Labs include a white count of 6.4, hemoglobin of 15.5, platelet count of 140. Sed rate is pending. Tox screen was negative. Sodium 137, potassium 4, BUN of 12, creatinine 0.8. C-reactive protein from today was 11.49. His troponin yesterday was 3.93 and has gradually come down to 1.61 today. His EKG from admission revealed sinus rhythm with diffuse ST elevations and IA elevation in AVR. EKG from today revealed some improvement in those ST elevations and new T-wave inversion in III. Chest x-ray revealed EF at the lower limits of normal 50% to 55%, trace MR, trace to mild TR, PA pressure normal at 26. No significant pericardial effusion. IMPRESSION: My impression is that Mr. Nava appears to have had a viral illness followed by myopericarditis. He has had no chest pain in 24 hours. His inflammatory markers are elevated, but slowly improving. His troponins are slowly improving. His EKG seems to be resolving. At this point, I discussed the case with Tamika Martinez and the patient. I recommend the followin. I strongly advised him to refrain from vigorous exertion until his biomarkers resolve and he has been asymptomatic for sustained period of time. 2. I advised him against any vigorous activities including weightlifting or competitive sports or life guarding for 6 months. 3. We discussed the potential risk of atrial and ventricular arrhythmias and recurrence of pericarditis with more vigorous exertion. 4. I would continue the colchicine for 3 months. 5. I would continue his Advil at a lower dose, perhaps 400 mg 3 times a day for a week and then taper off over the following week if he remains pain free. 6. I asked him to also refrain from alcohol given the potential for arrhythmia and LV dysfunction during this critical period of time. In general, I adivsed him to be more moderate with his alcohol intake. Further recommendations will depend on his clinical course. I would be happy to see him as an outpatient or he could follow up with his primary care doctor. I would suggest a repeat evaluation in 1 to 2 weeks' time and repeat on markers (trop ,esr, crp) at that point in time to evaluate his fitness for returning to class. [id number]/[facility] #: [id number] TIMO
--- NOTE | 2018-08-08 21:06 | DS ---
CC: [facility]; Dr. Zain Oseguera * DISCHARGE SUMMARY: DATE OF ADMISSION: 08/07/18 DATE OF DISCHARGE: 08/08/18 PRIMARY CARE PROVIDER: [facility]. ATTENDING PHYSICIAN: Dr. Nancy Yoon * (dictated by Tamika Martinez NP). PRIMARY DIAGNOSIS: Acute mild pericarditis. SECONDARY DIAGNOSIS: Pilonidal cyst. STUDIES WHILE IN THE HOSPITAL: EKG on 07/28/18 shows normal sinus rhythm at the rate of 85. QTc 419. Mild ST elevation present in all leads. Transthoracic echocardiogram on 08/08/18 reads as left ventricular systolic function is at the lower limits of normal. The estimated ejection fraction is 50% to 55%. The right ventricular global systolic function is normal. There is trace aortic regurgitation. There is trace mitral regurgitation. There is [id number] tricuspid regurgitation. There is no significant pericardial effusion. EKG on 08/08/18 shows normal sinus rhythm at the rate of 61. QTc 426. Again noted is diffuse minimal ST elevation. Chest x-ray on 08/08/18 reveals elevated lung volumes suggest obstructive lung disease corresponding with history of wheezing. No evidence for pneumonia. HISTORY OF PRESENT ILLNESS AND HOSPITAL COURSE: Mr. Nava is a 23-year-old male with no significant past medical history, who presented to the emergency room on 08/07/18 with complaints of chest pain. Please see the history and physical by Pamela Last NP, for complete summary of events leading up to this hospitalization. In short, the patient had an acute respiratory infection lasting from 08/01/18 to approximately 08/03/18. His symptoms resolved except for a dry cough, and beginning on 08/04/18, the patient had intermittent chest pain lasting approximately 1 hour. Pain was alleviated by ibuprofen and sitting up. Pain was aggravated by lying down. He presented to the emergency room and in the emergency room, he was noted to have a troponin of 4.97. He had an EKG as noted above, which was indicative of acute pericarditis. He was admitted by the hospitalist service. The patient had an uneventful night and reportedly has had no chest pain since the morning of 08/07/18. He has had no arrhythmias on telemetry. He was started on colchicine and ibuprofen. He did have an echocardiogram as noted above. EKG this morning was unchanged from the prior. Troponin did peak on arrival at 4.97 and last troponin as of this morning was 1.61. CRP is 11 and ESR is pending at this point. The patient has had no further cough and offers no complaints. The patient was seen in consultation by Cardiology who felt as though he was stable for discharge today as he has not had any pain since yesterday morning. On exam, the patient has a regular rate and rhythm. S1 and S2 are present. There are no murmurs, rubs, or gallops. Chest pain is nonreproducible. Mr. Nava is stable for discharge today. Vital signs are as follows: Temp 97.4, heart rate 71, respiratory rate 16, oxygen saturation 99% on room air, blood pressure 102/50. DISCHARGE MEDICATIONS: New medications: 1. Colchicine 0.6 mg p.o. b.i.d. x3 months. 2. Ibuprofen 400 mg p.o. q.8 hours x1 week, then decrease to 200 mg p.o. q.8 hours x1 week. Continued home medications: Cephalexin 500 mg p.o. t.i.d. DISCHARGE PLAN: Mr. Nava will be discharged home. The patient has received activity instruction by Dr. Oseguera, though he should not return to classes for at least 1 week. If he does not have any symptoms, at that point, he can return to classes, but may need to ultimately stay out of class for 2 weeks. He should not participate in any vigorous activity for 6 months. He has been advised by Dr. Oseguera to abstain from alcohol. Diet will be regular as tolerated. Medications as noted above. The patient will need to take colchicine for 3 months for treatment of his acute pericarditis, and as noted above, he should take 400 mg of ibuprofen every 8 hours for 1 week and then decrease to 200 mg every 8 hours for 1 week. At that point, he can stop the ibuprofen as long as he does not have any further pain. The patient will need followup labs in the next 7 to 10 days. He should only have the labs if he is symptom free as the labs will not be useful if he is currently experiencing symptoms. I have ordered a CRP, ESR, and troponin. I have provided the patient with a note to be out of school. He will need to follow up with either the health center at [facility] or with Dr. Oseguera in 3 weeks to ensure resolution of his symptoms. He has been instructed to return to the emergency room or nearest hospital for any worsening of symptoms, shortness of breath, lightheadedness, dizziness, chest discomfort, high fever, chills, night sweats, loss of consciousness, or any other worrisome signs or symptoms. DISCHARGE CONDITION: Stable. DISCHARGE DISPOSITION: Home. This is a summarized report of a complex medical history and hospital stay. For further details, please see the entire medical record. TIME SPENT: Approximately 50 minutes was spent on this discharge. TAMIKA MARTINEZ, [employer] OFFICE MANAGER [id number]/[facility] #: [id number] TIMO
[2018-08-09 02:47] LABS: Erythrocyte Sed Rate 7 mm/Hr (0-15)
== END 2018-08-08 17:43 | disposition home or self-care (01) ==
LOC: ED 12:30 → MEDTELE 17:42
PROVIDERS: ADMIT Internal Medicine; ATTEND Internal Medicine
DX: I30.9 Acute pericarditis, unspecified (principal); L05.91 Pilonidal cyst without abscess; R51 Headache; R05 Cough
CPT/HCPCS: 36415; 71045; 80048; 80053; 80307; 83605; 84484; 85025; 85060; 85652; 86140; 86308; 93005; 93306; 99284; A9270-GY; G0378